=== PATIENT | male | born 1965 | race Caucasian/White ===

== ENCOUNTER 2021-05-04 17:46 | Inpatient (IN) | payer OTHER ==
[~2021-05-04] VITALS: Ht 170.2 cm; Wt 132.8 kg
[2021-05-04 19:17] LABS: BASO % 0.2 % (0.0-2.0); GRAN # 3.2 K/mm3 (1.4-6.5); GRAN % 76.2 % (42.2-75.2); HEMATOCRIT 46.5 % (42.0-52.0); HEMOGLOBIN 15.7 g/dl (13.5-18.0); LYMPH # 0.5 K/mm3 (1.2-3.4); LYMPH % 12.6 % (20.0-51.0); MEAN CELL VOLUME 84 fl (80.0-100.0); MEAN CORPUSCULAR HEMOGLOBIN 29 pg (27-31); MEAN CORPUSCULAR HGB CONC 34 g/dl (33.0-37.0); MEAN PLATELET VOLUME 10.4 fl (7.4-10.4); MONO # 0.4 K/mm3 (0.1-0.6); MONO % 10.5 % (1.7-9.3); PLATELET COUNT 141 K/mm3 (130-400); RED BLOOD COUNT 5.51 M/mm3 (4.20-5.60); REDCELL DISTRIBUTION WIDTH-CV 11.8 % (11.5-14.5)
[2021-05-04 19:34] LABS: ALANINE AMINOTRANSFERASE 27 U/L (0-55); ALBUMIN 2.9 gm/dL (3.5-5.0); ALKALINE PHOSPHATASE 81 U/L (40-150); ANION GAP 15 mmol/L (7-16); AST,SGOT 35 U/L (5-34); BILIRUBIN,TOTAL 0.5 mg/dL (0.2-1.2); BLOOD UREA NITROGEN 12 mg/dL (8-26); CALCIUM 8.7 mg/dL (8.4-10.2); CARBON DIOXIDE 23 mmol/L (22-29); CHLORIDE 94 mmol/L (98-107); CREATININE, serum 0.93 mg/dL (0.72-1.25); GLUCOSE 103 mg/dL (70-99); POTASSIUM 4.3 mmol/L (3.5-4.5); SODIUM 132 mmol/L (136-145); TOTAL PROTEIN 7.2 gm/dL (6.2-8.1)
[2021-05-04 19:42] LABS: TROPONIN-I < 0.010 ng/mL (0.00-0.033)
[2021-05-04 21:30] LABS: C-REACTIVE PROTEIN 7.75 mg/dL (0.00-0.50); MAGNESIUM 1.7 mg/dL (1.6-2.6)
[2021-05-04] MEDS ORDERED: DOXYCYCLINE 10100 MG PO (22:35)
[2021-05-04] MEDS ORDERED: PROAIR HFA0.09 MG/AC IH (22:35)
[2021-05-04] MEDS ORDERED: CRESTOR20 MG PO (22:35)
[2021-05-04 23:58] LABS: INR 1.1 (0.8-3.0); PROTHROMBIN TIME 12.5 SECONDS (9.7-12.8)
[2021-05-05 02:24] LABS: ARTERIAL BLD GAS O2 SATURATION 93.7 % (92-100); ARTERIAL BLD GAS TCO2 CT 24.6; ARTERIAL BLOOD GAS BASE EXCESS -0.8 (-2-2); ARTERIAL BLOOD GAS HCO3 23.5 meq/L (22-26); ARTERIAL BLOOD GAS PCO2 37.5 mmHg (35-45); ARTERIAL BLOOD GAS PO2 70.3 mmHg (80-100); ARTERIAL BLOOD GAS pH 7.41 (7.35-7.45)
[2021-05-05] MEDS ORDERED: VITAMIN C PO (07:15)
[2021-05-05] MEDS ORDERED: VITAMIN D (07:16)
[2021-05-05] MEDS ORDERED: ZINC (07:17)
[2021-05-05 07:23] VITALS: BP 127/76; PULSE 59; TEMP 97.7
--- NOTE | 2021-05-05 07:27 | NUR ---
PT ARRIVED ON UNIT. ADMISSION, MED REC, PHARMACY CONFIRMED/COMPLETED. VITAL SIGNS OBTAINED. BREAKFAST ORDERED AND CALL LIGHT WITHIN REACH.
--- NOTE | 2021-05-05 08:00 | NUR ---
PT ALERT AND ORIENTED. ASSESSMENT COMPLETED. LUNGS CLEAR TO AUSCULTATION. S1,S2 HEARD. PT ABLE TO AMBULATE INDEPENDENTLY. PT ACTIVE BOWEL SOUNDS, STATES LAST BOWEL MOVEMENT WAS LAST WEDNESDAY. NOTIFIED DR. BAUGH OF POSSIBLE NEED FOR BOWEL REGIME. PT STATES FEELING TIRED FROM NOT GETTING MUCH SLEEP LAST NIGHHT. CALL LIGHT WITHIN REACH.
[2021-05-05 09:56] LABS: GRAN # 2.2 K/mm3 (1.4-6.5); GRAN % 69.9 % (42.2-75.2); HEMATOCRIT 43.7 % (42.0-52.0); HEMOGLOBIN 14.6 g/dl (13.5-18.0); LYMPH # 0.7 K/mm3 (1.2-3.4); LYMPH % 21.7 % (20.0-51.0); MEAN CELL VOLUME 86 fl (80.0-100.0); MEAN CORPUSCULAR HEMOGLOBIN 29 pg (27-31); MEAN CORPUSCULAR HGB CONC 33 g/dl (33.0-37.0); MEAN PLATELET VOLUME 11.4 fl (7.4-10.4); MONO # 0.2 K/mm3 (0.1-0.6); MONO % 7.1 % (1.7-9.3); PLATELET COUNT 154 K/mm3 (130-400); RED BLOOD COUNT 5.07 M/mm3 (4.20-5.60); REDCELL DISTRIBUTION WIDTH-CV 11.8 % (11.5-14.5)
[2021-05-05 10:16] LABS: ALBUMIN 2.5 gm/dL (3.5-5.0); BILIRUBIN,TOTAL 0.4 mg/dL (0.2-1.2); CALCIUM 8.3 mg/dL (8.4-10.2); CREATININE, serum 0.73 mg/dL (0.72-1.25); POTASSIUM 4.2 mmol/L (3.5-4.5); TOTAL PROTEIN 6.3 gm/dL (6.2-8.1)
[2021-05-05 11:22] VITALS: BP 126/73; PULSE 67; TEMP 98
--- NOTE | 2021-05-05 12:20 | NUR ---
PT SISTER, KARLO CALLED FOR UPDATE. VERBAL CONSENT GIVEN BY PT, SECURITY CODE GIVEN FOR FUTURE UPDATES. UPDATED PT STATUS TO BEST OF ABILITY. ANSWERED QUESTIONS TO BEST OF ABILITY. ([phone]) REQUESTING UPDATES IF PT STATUS CHANGES.
--- NOTE | 2021-05-05 13:54 | NUR ---
NOTIFIED RESPIRATORY THERAPY OF INCREASE OXYGEN NEEDS.
--- NOTE | 2021-05-05 14:09 | NUR ---
PT NOW ON 7L VIA HIGH FLOW CANNULA, SATURATION AT 92-93%.
--- NOTE | 2021-05-05 14:28 | NUR ---
PT SISTER, KARLO UPDATED PER REQUEST ON PT STATUS.
--- NOTE | 2021-05-05 14:41 | NUR ---
PT , KRISTOFER CALLED FOR UPDATE. VERBAL CONFIRMATION RECEIVED BY PT. UPDATED TO BEST OF ABILITY. PRIVACY CODE GIVEN FOR FUTURE UPDATES.
[2021-05-05 16:01] VITALS: BP 127/79; PULSE 80; TEMP 97.6
--- NOTE | 2021-05-05 18:15 | NUR ---
PT STATES COVID TEST WAS COMPLETED AT HOME. DENIED RETEST AT HOSPITAL WHEN ASKED.
--- NOTE | 2021-05-05 19:43 | NUR ---
PT CONTINUING ON PLAN OF CARE. PT OXYGEN NEEDS INCREASED THIS SHIFT. PT REPORTED PAIN IN BACK, PRN MEDICATION GIVEN PER ORDERS. PT FAMILY CALLED FOR UPDATES THIS SHIFT. GIVEN TO BEST OF ABILITY. PT INDEPENDENT IN ROOM, ABLE TO CALL FOR NEEDS.
[2021-05-05 20:46] VITALS: BP 119/70; PULSE 85; TEMP 98.4
[2021-05-06 01:03] VITALS: BP 117/72; PULSE 61; TEMP 98.2
--- NOTE | 2021-05-06 01:58 | NUR ---
PT IS SITTING IN BED WATCHING TV. PT ASKED FOR MORE MOTRIN TO HELP CONTROL BACK PAIN. PT STATES HE IS NOT SOB. PT IS PLEASANT AND TOOK ALL MEDICATIONS PRESCRIBED. PT SISTER CALLED AND ASKED FOR UPDATE, THIS RN GAVE UPDATE OF NO CHANGES SINCE EARLIER WHEN PT HAD TO HAVE INCREASE OF OXYGEN NEEDS. CALL LIGHT IN REACH. NO OTHER NEEDS AT THIS TIME.
[2021-05-06 05:20] VITALS: BP 108/61; PULSE 64; TEMP 97.9
--- NOTE | 2021-05-06 06:23 | NUR ---
Pt has remained pleasant all night. Pt slept ok overnight. Pt took melatonin to try to help sleep, pt advised to let this RN know if melatonin did not work, pt did not call for any more medication. Pt is still on 7L NC High Flow NC. Pt took all medication, call light in reach, no other needs at this time.
[2021-05-06 07:27] LABS: BASO % 0.2 % (0.0-2.0); GRAN # 13.1 K/mm3 (1.4-6.5); HEMATOCRIT 43.8 % (42.0-52.0); HEMOGLOBIN 14.7 g/dl (13.5-18.0); LYMPH # 1.3 K/mm3 (1.2-3.4); LYMPH % 8.1 % (20.0-51.0); MEAN CELL VOLUME 86 fl (80.0-100.0); MEAN CORPUSCULAR HEMOGLOBIN 29 pg (27-31); MEAN CORPUSCULAR HGB CONC 34 g/dl (33.0-37.0); MONO # 1.2 K/mm3 (0.1-0.6); MONO % 7.7 % (1.7-9.3); PLATELET COUNT 206 K/mm3 (130-400); RED BLOOD COUNT 5.11 M/mm3 (4.20-5.60); REDCELL DISTRIBUTION WIDTH-CV 11.8 % (11.5-14.5)
[2021-05-06 08:18] VITALS: BP 115/71; PULSE 58; TEMP 98
[2021-05-06 08:18] LABS: ALBUMIN 2.6 gm/dL (3.5-5.0); BILIRUBIN,TOTAL 0.3 mg/dL (0.2-1.2); CALCIUM 8.6 mg/dL (8.4-10.2); CREATININE, serum 0.8 mg/dL (0.72-1.25); POTASSIUM 4.1 mmol/L (3.5-4.5); TOTAL PROTEIN 6.1 gm/dL (6.2-8.1)
--- NOTE | 2021-05-06 08:50 | NUR ---
ICE WATER BROUGHT IN FOR PT, PT C/O STOMACH ACHE, TYLENOL GIVEN WTIH OTHER MEDICATIONS, EDUCATED ON MEDICATIONS GIVEN, ASSESSMENT PERFORMED, VITALS REVIEWED, PT BREAKFAST BROUGHT IN BUT REPORTS HE WONT EAT UNTIL STOMACH FEELS BETTER. EDUCATED PT ON IMP OF PRONING AND THE BENEFITS, PT DOES NOT APPEAR TO BE SOB AT REST, DENIES N/V/D, PT REF MIRALAX, PT SISTER KARLO UPDATED, NO OTHER NEEDS
--- NOTE | 2021-05-06 11:20 | NUR ---
Parts Sales Advisor contacted patient by phone as he is in isolation for [facility]. Patient lives in [place] with his , Desean (ph#[phone]) and their 17 year old daughter. Patient sees Dr. Griffith for primary care and obtains medications from [facility] or [facility]. Patient does not use any DME at home, but is currently requiring 7 liters of oxygen. Patient is normally independent with ADLS and plans on returning home upon discharge. Patient does not have Advance Directives and his , Desean is legal next of kin. Discharge Plan: Home, may need home oxygen
[2021-05-06 11:35] VITALS: BP 120/69; PULSE 60; TEMP 97.9
[2021-05-06 15:29] VITALS: BP 114/68; PULSE 58; TEMP 98.7
--- NOTE | 2021-05-06 18:37 | NUR ---
PT PLEASANT, AOX4, DENIES PAIN AT THIS TIME, MEDS GIVEN, NO OTHER NEEDS
[2021-05-06 20:20] VITALS: BP 121/69; PULSE 65; TEMP 98.7
--- NOTE | 2021-05-06 22:12 | NUR ---
PT IS PLEASANT AND LYING IN BED. THIS RN ASKED IF PATIENT HAD BEEN ABLE TO PRONE DURING THE DAY, PT STATED THAT HE DID. PT STATED THAT HE WAS GOING TO TRY TO SLEEP PRONED DURING THE NIGHT. PT STATED THAT HE HAD DIFFICULTY SLEEPING ON STOMACH DUE TO THE FACT HE NORMALLY SLEEPS ON HIS SIDE. ALL MEDICATIONS GIVEN, PT STATED HE FELT SLIGHTLY SHORT OF BREATH BUT IT WAS OVERALL OK. PT TOOK ALL MEDICATIONS. CALL LIGHT IN REACH. NO OTHER NEEDS AT THIS TIME.
[2021-05-07 00:37] VITALS: BP 117/69; PULSE 58; TEMP 97.9
[2021-05-07 03:48] VITALS: BP 126/70; PULSE 66; TEMP 98.3
--- NOTE | 2021-05-07 06:32 | NUR ---
PT HAD AN UNEVENTFUL NIGHT, PT SEEMED TO SLEEP MAJORITY OF NIGHT, PT STILL ASLEEP, UNABLE TO ASK IF PT WAS ABLE TO PRONE DURING NIGHT AT ALL. ALL MEDICATIONS GIVEN, ALL NEEDS MET. CALL LIGHT IN REACH.
[2021-05-07 07:00] LABS: BASO % 0.2 % (0.0-2.0); GRAN # 10.8 K/mm3 (1.4-6.5); HEMATOCRIT 42.9 % (42.0-52.0); HEMOGLOBIN 14.6 g/dl (13.5-18.0); LYMPH % 7.6 % (20.0-51.0); MEAN CELL VOLUME 86 fl (80.0-100.0); MEAN CORPUSCULAR HEMOGLOBIN 29 pg (27-31); MEAN CORPUSCULAR HGB CONC 34 g/dl (33.0-37.0); MEAN PLATELET VOLUME 10.9 fl (7.4-10.4); MONO # 0.9 K/mm3 (0.1-0.6); MONO % 7.3 % (1.7-9.3); PLATELET COUNT 219 K/mm3 (130-400); RED BLOOD COUNT 5.02 M/mm3 (4.20-5.60); REDCELL DISTRIBUTION WIDTH-CV 11.9 % (11.5-14.5)
[2021-05-07 07:20] LABS: ALBUMIN 2.5 gm/dL (3.5-5.0); BILIRUBIN,TOTAL 0.4 mg/dL (0.2-1.2); CALCIUM 8.6 mg/dL (8.4-10.2); CREATININE, serum 0.76 mg/dL (0.72-1.25); POTASSIUM 4.5 mmol/L (3.5-4.5); TOTAL PROTEIN 5.9 gm/dL (6.2-8.1)
[2021-05-07 08:56] VITALS: BP 131/79; PULSE 62; TEMP 97.9
--- NOTE | 2021-05-07 10:22 | NUR ---
PT AOX4, APPEARS WITH FLAT AFFECT, ASSESSMENT PERFORMED, PT REPORTS SOFT FORMED BM YESTERDAY, REPORTS STOMACH ACHE, ALSO REPORTS NAUSEA/VOMITING, ZOFRAN ORDERED BY [facility] AND GIVEN, SPRITE GIVEN FOR PT, PT REFUSING TO EAT BREAKFAST, MEDICATIONS GIVEN AND EDUCATED ON THE FUNCTION. BOTH PT SISTER AND UPDATED, PT VERY EMOTIONAL ABOUT PT CONDITION. PAIN MEDICATIONS GIVEN FOR STOMACH ACHE. NO OTHER NEEDS AT THIS TIME
[2021-05-07 12:39] VITALS: BP 105/60; PULSE 60; TEMP 98.1
[2021-05-07 16:30] VITALS: BP 131/78; PULSE 62; TEMP 97.7
--- NOTE | 2021-05-07 16:56 | NUR ---
PT APPEARS IN MUCH BETTER SPIRITS SINCE PT SISTER WAVED TO HIM OUTSIDE FROM THE PARKING LOT. PT DENIES PAIN IN ABD AT THIS TIME AND REPORTS THE BENTYL REALLY HELPED, PT AOX4, REMDESIVIR HUNG, DENIES SOB AT REST, DENIES NAUSEA/VOMITING SINCE AM, NO DIARRHEA, NO OTHER NEEDS
[2021-05-07 20:08] VITALS: BP 126/75; PULSE 63; TEMP 98.5
[2021-05-08 01:11] VITALS: BP 125/76; PULSE 65; TEMP 98.4
[2021-05-08 05:12] VITALS: BP 139/82; PULSE 64; TEMP 98
--- NOTE | 2021-05-08 05:36 | NUR ---
C/O upset stomach, prn Bentyl given with good effects, call sharp w/ii reach, telemetry in use, tolerating treatment, O2@7L per NC in use.
[2021-05-08 06:25] LABS: BASO % 0.1 % (0.0-2.0); GRAN # 9.7 K/mm3 (1.4-6.5); GRAN % 80.8 % (42.2-75.2); LYMPH # 1.2 K/mm3 (1.2-3.4); LYMPH % 9.5 % (20.0-51.0); MEAN CELL VOLUME 85 fl (80.0-100.0); MEAN CORPUSCULAR HEMOGLOBIN 29 pg (27-31); MEAN CORPUSCULAR HGB CONC 34 g/dl (33.0-37.0); MEAN PLATELET VOLUME 10.6 fl (7.4-10.4); MONO # 1.1 K/mm3 (0.1-0.6); MONO % 8.8 % (1.7-9.3); PLATELET COUNT 226 K/mm3 (130-400); RED BLOOD COUNT 4.81 M/mm3 (4.20-5.60); REDCELL DISTRIBUTION WIDTH-CV 11.7 % (11.5-14.5)
[2021-05-08 06:45] LABS: ALBUMIN 2.6 gm/dL (3.5-5.0); BILIRUBIN,TOTAL 0.5 mg/dL (0.2-1.2); C-REACTIVE PROTEIN 0.49 mg/dL (0.00-0.50); CALCIUM 8.5 mg/dL (8.4-10.2); CREATININE, serum 0.76 mg/dL (0.72-1.25); POTASSIUM 4.5 mmol/L (3.5-4.5); TOTAL PROTEIN 5.9 gm/dL (6.2-8.1)
[2021-05-08 08:29] VITALS: BP 126/85; PULSE 62; TEMP 97.8
[2021-05-08 11:05] VITALS: BP 118/65; PULSE 58; TEMP 98.2
--- NOTE | 2021-05-08 15:05 | NUR ---
PT REFUSED REMDESIVIR, PT REPORTS HIS ABDOMINAL PAIN HAS RESOLVED AND HAS FELT THE BEST HE HAS SINCE ADMITTED. PT FEELS REMDESIVIR COULD HAVE BEEN CAUSING HIS DISCOMFORT.
[2021-05-08 17:09] VITALS: BP 125/84; PULSE 85; TEMP 97.9
[2021-05-08 19:46] VITALS: BP 136/81; PULSE 64; TEMP 98.6
[2021-05-09 00:25] VITALS: BP 112/63; PULSE 63; TEMP 98.5
[2021-05-09 04:00] VITALS: BP 123/85; PULSE 79; TEMP 98.2
--- NOTE | 2021-05-09 06:27 | NUR ---
PT 02 WEANED DOWN TO RA THIS NIGHT WITH SATURATIONS AT 92-93 PERCENT. PT INSTRUCTED ON FIRST AMBULATION TO USE CALL LIGHT BECAUSE OF POSSIBLE DESATURATION. PT VERBALIZES UNDERSTANDING. PT STOMACH ACHE REMAINS. PT FOUND SOME ALLEVATION WITH MEDICATION AND LITTLE FOOD CONSUMPTION. ABX ADMINISTERED ORDERED. ALL NEEDS MET THIS NIGHT. CALL LIGHT WITHIN REACH.
[2021-05-09 07:34] LABS: BASO % 0.2 % (0.0-2.0); GRAN # 7.9 K/mm3 (1.4-6.5); GRAN % 70.5 % (42.2-75.2); HEMATOCRIT 44.8 % (42.0-52.0); HEMOGLOBIN 14.9 g/dl (13.5-18.0); LYMPH # 1.9 K/mm3 (1.2-3.4); LYMPH % 17.1 % (20.0-51.0); MEAN CELL VOLUME 86 fl (80.0-100.0); MEAN CORPUSCULAR HEMOGLOBIN 29 pg (27-31); MEAN CORPUSCULAR HGB CONC 33 g/dl (33.0-37.0); MEAN PLATELET VOLUME 10.7 fl (7.4-10.4); MONO # 1.2 K/mm3 (0.1-0.6); MONO % 10.8 % (1.7-9.3); PLATELET COUNT 260 K/mm3 (130-400); RED BLOOD COUNT 5.23 M/mm3 (4.20-5.60); REDCELL DISTRIBUTION WIDTH-CV 11.7 % (11.5-14.5)
[2021-05-09 07:59] LABS: ALBUMIN 2.7 gm/dL (3.5-5.0); BILIRUBIN,DIRECT 0.3 mg/dL (0.0-0.5); BILIRUBIN,TOTAL 0.7 mg/dL (0.2-1.2); CALCIUM 8.8 mg/dL (8.4-10.2); CREATININE, serum 0.77 mg/dL (0.72-1.25); POTASSIUM 4.1 mmol/L (3.5-4.5); TOTAL PROTEIN 6.2 gm/dL (6.2-8.1)
--- NOTE | 2021-05-09 08:50 | NUR ---
PT AOX4, FLAT AFFECT, SITTING UP AT END OF BED UPON ENTRY, PT REPORTS ABD CRAMPING, BENTYL GIVEN, PT ASSESSMENT PERFORMED, MEDICATIONS GIVEN
[2021-05-09 09:27] VITALS: BP 134/86; PULSE 60; TEMP 98.2
--- NOTE | 2021-05-09 09:32 | NUR ---
Collabortated with the patient's RN who states the patient has been able to ambulate fine. Does not feel as if a PT eval is needed at this time.
[2021-05-09 11:33] VITALS: BP 116/61; PULSE 69; TEMP 97.9
[2021-05-09 16:56] VITALS: BP 131/79; PULSE 71; TEMP 98.3
--- NOTE | 2021-05-09 18:37 | NUR ---
pt pleasant, aox4, denies abd pain at this time, pt eager to discharge, pt refusing meals, encouraged to prone, no other needs
[2021-05-09 20:26] VITALS: BP 132/83; PULSE 74; TEMP 98.9
--- NOTE | 2021-05-09 23:32 | NUR ---
PT IS LAYING IN BED, STATES THAT HIS STOMACH FEELS SETTLED AT THE MOMENT. PT REFUSED ROCEPHIN, DOXY, COLACE, LOVENOX MEDICATION. PT STATED MILD PAIN IN BACK, STOMACH IS OK AT MOMENT. PT IS ON ROOM AIR. CALL LIGHT IN REACH, NO OTHER NEEDS AT THIS TIME.
[2021-05-10 00:34] VITALS: BP 126/82; PULSE 71; TEMP 98.9
[2021-05-10 04:53] VITALS: BP 138/83; PULSE 70; TEMP 98.1
[2021-05-10 05:01] VITALS: BP 147/77; PULSE 66; TEMP 98
--- NOTE | 2021-05-10 05:19 | NUR ---
PT REPORTED SOME INDIGESTION, THIS RN BROUGHT PT PROTONIX IN. PT REPORTED NASEUA, THIS RN OFFERED ZOFRAN, PT REFUSED. PROTONIX GIVEN. PT IMMEDIATELY HAD EMESIS. THIS RN REPEATED OFFER FOR ANY ZOFRAN, PT REFUSED AGAIN. DENIES ANY HELP AT THE TIME
--- NOTE | 2021-05-10 06:52 | NUR ---
PT HAD AN OK NIGHT. ONE EVENT OF EMESIS AFTER TAKING PROTONIX. PT REFUSED ZOFRAN, THIS RN GAVE PT TIME TO SETTLE STOMACH, WENT TO CHECK ON PATIENT, PATIENT WAS ASLEEP. NO OTHER NEEDS AT THIS TIME.
--- NOTE | 2021-05-10 07:50 | NUR ---
PT C/O SEVERE ABD CRAMPING AND ACID REFLUX. PT HAD PREVIOUSLY VOMITING AFTER RECIEVING PROTONIX, NOTIFIED DR. HERNANDEZ AND HE GAVE VERBAL ORDER FOR PROTONIX IV AND TO CONSULT GI. ORDERS PLACED, DR. KINGSLEY CONTACTED
[2021-05-10 07:57] LABS: HEMATOCRIT 48.4 % (42.0-52.0); HEMOGLOBIN 16.3 g/dl (13.5-18.0); MEAN CELL VOLUME 85 fl (80.0-100.0); MEAN CORPUSCULAR HEMOGLOBIN 29 pg (27-31); MEAN CORPUSCULAR HGB CONC 34 g/dl (33.0-37.0); MEAN PLATELET VOLUME 10.1 fl (7.4-10.4); PLATELET COUNT 322 K/mm3 (130-400); RED BLOOD COUNT 5.69 M/mm3 (4.20-5.60); REDCELL DISTRIBUTION WIDTH-CV 11.7 % (11.5-14.5)
--- NOTE | 2021-05-10 08:00 | NUR ---
PT PLEASANT, AOX4, REPORTING ABD PAIN 2/10, DENIES NEED FOR TYLENOL, REPROTS NO BM IN 2 DAYS, COLACE AND MIRALAX GIVEN, PT REFUSING OTHER MEDS, PROTONIX IV GIVEN, NO OTHER NEEDS
[2021-05-10 08:20] LABS: CALCIUM 9.1 mg/dL (8.4-10.2); CREATININE, serum 0.89 mg/dL (0.72-1.25); POTASSIUM 4.4 mmol/L (3.5-4.5)
[2021-05-10 08:37] VITALS: BP 101/68; PULSE 75; TEMP 98.1
[2021-05-10 09:40] LABS: LYMPHOCYTE 20 % (20.0-51.0); NEUTROPHILS 65 % (42.0-75.2); PLATELET ESTIMATE NORMAL (NORMAL)
[2021-05-10] MEDS ORDERED: DECADRON6 MG PO (11:51)
[2021-05-10] MEDS ORDERED: PROTONIX 40MG T40 MG PO (11:51)
[2021-05-10] MEDS ORDERED: ZOFRAN8 MG PO (11:51)
--- NOTE | 2021-05-10 13:30 | NUR ---
pt escorted out via wheelchair, discharge education provided, iv removed, no questions at this time, medications given to pt to get him until the pharmacy opens per physician order.
== END 2021-05-10 13:30 | disposition home or self-care (01) | DRG 177 ==
LOC: COL.ER 17:46 → MEDICAL 20:23
PROVIDERS: Emergency Medicine; Nurse Practitioner Family; Student in an Organized Health Care Education/Training Program; ADMIT Internal Medicine
PROC: XW033E5 Introduction of Remdesivir Anti-infective into Peripheral Vein, Percutaneous Approach, New Technology Group 5 (ICD-10-PCS; principal; 2021-05-04)
DX: U07.1 COVID-19 (principal); J12.82 Pneumonia due to coronavirus disease 2019; J96.01 Acute respiratory failure with hypoxia; E87.1 Hypo-osmolality and hyponatremia; A08.39 Other viral enteritis; E78.5 Hyperlipidemia, unspecified; E87.8 Other disorders of electrolyte and fluid balance, not elsewhere classified; D72.829 Elevated white blood cell count, unspecified; T38.0X5A Adverse effect of glucocorticoids and synthetic analogues, initial encounter; Z73.0 Burn-out
CPT/HCPCS: 99222-AI; 99232-AI; 99233-AI; 99239; C9113; J0696; J1100; J1650; J1885; J2405; J7030; J7050; J8540; Q9967